=== PATIENT | male | born 1980 | race Caucasian/White ===

== ENCOUNTER 2016-10-21 07:13 | Emergency (ER) | payer MEDICAID ==
[~2016-10-21] VITALS: Ht 172.7 cm; Wt 83.1 kg
[~2016-10-21 07:13] MED LIST: CYCL-259 PO; DULO60CA7 PO; TRAM50TA2 PO
[2016-10-21] MEDS ORDERED: ONDANSETRON 2MG/ML, 2ML IVPush ONE ×2 (08:00→09:00)
[2016-10-21] MEDS ORDERED: LORazepam 2 MG/ML, 1ML IVPush ONE (08:00)
[2016-10-21] MEDS ORDERED: SODIUM CHLORIDE FLUSH 10ML SYR IVF ONE (08:00)
[2016-10-21] MEDS ORDERED: FOLIC ACID 1 MG TABLET PO ONE (08:00)
[2016-10-21] MEDS ORDERED: THIAMINE 100MG TABLET PO ONE (08:00)
[2016-10-21] MEDS ORDERED: SODIUM CHLORIDE 0.9% 1,000ML IVBOLUS ONE (08:00)
[2016-10-21] MEDS ORDERED: LORazepam 2 MG/ML, 1ML ONE (08:17)
[2016-10-21] MEDS ORDERED: ONDANSETRON 2MG/ML, 2ML ONE ×2 (08:17→09:07)
[2016-10-21 08:53] LABS: BLOOD UREA NITROGEN 14 mg/dL (7-18)
[2016-10-21 08:56] LABS: ASPARTATE AMINO TRANSFERASE 28 U/L (15-37)
[2016-10-21] MEDS ORDERED: FAMOTIDINE 20 MG/2 ML ONE (09:07)
[2016-10-21] MEDS ORDERED: THIAMINE 100MG TABLET ONE (09:27)
[2016-10-21] MEDS ORDERED: FAMOTIDINE 20 MG/2 ML IVPush ONE (09:30)
[2016-10-21 09:53] VITALS: BP 137/88
== END 2016-10-21 09:56 | disposition home or self-care (01) ==
LOC: ED 08:58
DX: F41.9 Anxiety disorder, unspecified (principal); F10.231 Alcohol dependence with withdrawal delirium; K29.20 Alcoholic gastritis without bleeding
CPT/HCPCS: 36415; 80053; 85025; 96361; 96374; 96375; 96376; J2405; J2060; J7030; S0028

== ENCOUNTER 2016-10-23 18:12 | Emergency (ER) | payer MEDICAID ==
[~2016-10-23] VITALS: Ht 172.7 cm; Wt 84.8 kg
[2016-10-23 18:14] VITALS: BP 124/82
[2016-10-23] MEDS ORDERED: LORazepam 1MG TABLET ONE (19:29)
[2016-10-23] MEDS ORDERED: LORazepam 1MG TABLET PO ONE (19:30)
== END 2016-10-23 19:41 | disposition home or self-care (01) ==
LOC: ED 18:51
DX: F41.1 Generalized anxiety disorder (principal)
CPT/HCPCS: 99284

== ENCOUNTER 2016-10-24 03:25 | Emergency (ER) | payer MEDICAID ==
[~2016-10-24] VITALS: Ht 172.7 cm; Wt 85.1 kg
[2016-10-24 03:27] VITALS: BP 136/90
[2016-10-24] MEDS ORDERED: IBUPROFEN 200 MG TABLET PO ONE (04:00)
[2016-10-24] MEDS ORDERED: IBUPROFEN 200 MG TABLET ONE (04:02)
== END 2016-10-24 04:24 | disposition left against medical advice (07) ==
LOC: ED 04:18
DX: S39.012A Strain of muscle, fascia and tendon of lower back, initial encounter (principal); X58.XXXA Exposure to other specified factors, initial encounter; Y93.89 Activity, other specified; Y92.89 Other specified places as the place of occurrence of the external cause; Y99.8 Other external cause status
CPT/HCPCS: 99283

== ENCOUNTER 2016-10-24 12:40 | Emergency (ER) | payer MEDICAID ==
[~2016-10-24] VITALS: Ht 172.7 cm; Wt 85.1 kg
[2016-10-24] MEDS ORDERED: THIAMINE 100MG TABLET ONE (13:26)
[2016-10-24] MEDS ORDERED: ONDANSETRON 2MG/ML, 2ML ONE (13:26)
[2016-10-24] MEDS ORDERED: LORazepam 2 MG/ML, 1ML ONE (13:27)
[2016-10-24] MEDS ORDERED: LORazepam 2 MG/ML, 1ML IVPush ONE (13:30)
[2016-10-24] MEDS ORDERED: ONDANSETRON 2MG/ML, 2ML IVPush ONE (13:30)
[2016-10-24] MEDS ORDERED: THIAMINE 100MG TABLET PO ONE (13:30)
[2016-10-24] MEDS ORDERED: SODIUM CHLORIDE 0.9% 1,000ML IVBOLUS ONE (13:30)
[2016-10-24] MEDS ORDERED: SODIUM CHLORIDE FLUSH 10ML SYR IVF ONE (13:30)
[2016-10-24 13:46] LABS: ASPARTATE AMINO TRANSFERASE 31 U/L (15-37); BLOOD UREA NITROGEN 13 mg/dL (7-18)
[2016-10-24 15:33] VITALS: BP 117/72
[2016-10-25] MEDS ORDERED: FOLIC ACID 1 MG TABLET PO ONE (09:00)
== END 2016-10-24 15:35 | disposition home or self-care (01) ==
LOC: ED 13:38
DX: F10.239 Alcohol dependence with withdrawal, unspecified (principal); R45.1 Restlessness and agitation
CPT/HCPCS: 36415; 80053; 85025; 85610; 93005; 96361; 96374; 96375; 99285; J2060; J2405; J7030

== ENCOUNTER 2016-11-30 23:29 | Emergency (ER) | payer MEDICAID ==
[~2016-11-30] VITALS: Ht 172.7 cm; Wt 86.6 kg
[2016-12-01] MEDS ORDERED: MAALOX/HYOSCYAMINE/LIDOCAINE 45 ML BTL PO ONE (01:00)
[2016-12-01 01:10] LABS: HEMATOCRIT 45.7 % (39.2-51.8); HEMOGLOBIN 15.4 g/dL (13.7-18.0); WHITE BLOOD COUNT 11.8 x10^3/uL (3.4-10)
[2016-12-01] MEDS ORDERED: MAALOX/HYOSCYAMINE/LIDOCAINE 45 ML BTL ONE (01:13)
[2016-12-01 01:23] LABS: ASPARTATE AMINO TRANSFERASE 23 U/L (15-37); BLOOD UREA NITROGEN 9 mg/dL (7-18)
[2016-12-01 01:38] VITALS: BP 139/82
[2016-12-01 03:22] LABS: DAU SCREEN DISCLAIMER
== END 2016-12-01 02:57 | disposition home or self-care (01) ==
LOC: ED 23:59
DX: K29.20 Alcoholic gastritis without bleeding (principal); F10.129 Alcohol abuse with intoxication, unspecified; F41.9 Anxiety disorder, unspecified; Z87.19 Personal history of other diseases of the digestive system
CPT/HCPCS: 36415; 80053; 80307; 81003; 83690; 85025; 93005; 99285

== ENCOUNTER 2016-12-16 18:13 | Emergency (ER) | payer MEDICAID ==
[~2016-12-16] VITALS: Ht 172.7 cm; Wt 78.0 kg
[2016-12-16 18:49] LABS: HEMATOCRIT 43.9 % (39.2-51.8); HEMOGLOBIN 14.6 g/dL (13.7-18.0); WHITE BLOOD COUNT 10.5 x10^3/uL (3.4-10)
[2016-12-16] MEDS ORDERED: MAGNESIUM SULFATE 1 GM, THIAMINE 100 MG, FOLIC ACID 1 MG, MVI ADULT 10 ML in SODIUM CHL... IV ONE (19:00)
[2016-12-16] MEDS ORDERED: SODIUM CHLORIDE FLUSH 10ML SYR IVF ONE (19:00)
[2016-12-16 19:01] LABS: ASPARTATE AMINO TRANSFERASE 31 U/L (15-37); BLOOD UREA NITROGEN 9 mg/dL (7-18)
[2016-12-16] MEDS ORDERED: ONDANSETRON 2MG/ML, 2ML ONE (19:32)
[2016-12-16] MEDS ORDERED: LORazepam 2 MG/ML, 1ML ONE (19:32)
[2016-12-16 19:42] LABS: DAU SCREEN DISCLAIMER
[2016-12-16 19:48] VITALS: BP 123/77
[2016-12-16] MEDS ORDERED: LORazepam 2 MG/ML, 1ML IVPush ONE ×3 (20:00→21:30)
[2016-12-16] MEDS ORDERED: ONDANSETRON 2MG/ML, 2ML IVPush ONE (20:00)
== END 2016-12-16 21:50 | disposition home or self-care (01) ==
LOC: ED 19:35
DX: R56.9 Unspecified convulsions (principal); F10.239 Alcohol dependence with withdrawal, unspecified
CPT/HCPCS: 36415; 70450; 80053; 80307; 82140; 85025; 85610; 93005; 96361; 96365; 96375; 96376; 99285; J2060; J2405; J3411; J3475; J7030; G0479

== ENCOUNTER 2017-01-10 18:35 | Emergency (ER) | payer MEDICAID ==
[~2017-01-10] VITALS: Ht 177.8 cm; Wt 82.0 kg
[2017-01-10] MEDS ORDERED: LORazepam 2 MG/ML, 1ML ONE (18:43)
[2017-01-10] MEDS ORDERED: ONDANSETRON 2MG/ML, 2ML ONE ×2 (18:43)
[2017-01-10] MEDS ORDERED: LORazepam 2 MG/ML, 1ML IVPush ONE (19:00)
[2017-01-10] MEDS ORDERED: ONDANSETRON 2MG/ML, 2ML IVPush ONE (19:00)
[2017-01-10] MEDS ORDERED: SODIUM CHLORIDE 0.9% 1,000ML IVBOLUS ONE (19:00)
[2017-01-10] MEDS ORDERED: SODIUM CHLORIDE FLUSH 10ML SYR IVF ONE (19:00)
[2017-01-10 19:11] VITALS: BP 110/72
[2017-01-10] MEDS ORDERED: THIAMINE 100MG TABLET PO ONE (19:30)
== END 2017-01-10 20:13 | disposition home or self-care (01) ==
LOC: ED 19:30
DX: F10.239 Alcohol dependence with withdrawal, unspecified (principal); R45.1 Restlessness and agitation; F41.9 Anxiety disorder, unspecified
CPT/HCPCS: 96361; 96374; 96375; 99284; J2060; J2405; J7030

== ENCOUNTER 2017-01-11 13:47 | Emergency (ER) | payer MEDICAID ==
[~2017-01-11] VITALS: Ht 172.7 cm; Wt 83.9 kg
[2017-01-11] MEDS ORDERED: LORazepam 2 MG/ML, 1ML ONE (14:16)
[2017-01-11] MEDS ORDERED: LORazepam 2 MG/ML, 1ML IM ONE (14:30)
[2017-01-11 14:55] VITALS: BP 130/66
== END 2017-01-11 15:02 | disposition home or self-care (01) ==
LOC: ED 13:58
DX: F10.239 Alcohol dependence with withdrawal, unspecified (principal); M19.90 Unspecified osteoarthritis, unspecified site
CPT/HCPCS: 96372; 99283; J2060

== ENCOUNTER 2017-03-07 14:26 | Emergency (ER) | payer MEDICAID ==
[~2017-03-07] VITALS: Ht 172.7 cm; Wt 81.7 kg
[2017-03-07 14:52] VITALS: BP 135/90
== END 2017-03-07 17:09 | disposition home or self-care (01) ==
LOC: ED 16:15
DX: S39.012A Strain of muscle, fascia and tendon of lower back, initial encounter (principal); W18.2XXA Fall in (into) shower or empty bathtub, initial encounter; Y93.E1 Activity, personal bathing and showering; Y92.89 Other specified places as the place of occurrence of the external cause; Y99.8 Other external cause status
CPT/HCPCS: 72110; 99284

== ENCOUNTER 2017-03-31 15:12 | Emergency (ER) | payer MEDICAID ==
[~2017-03-31] VITALS: Ht 172.7 cm; Wt 85.0 kg
[2017-03-31 15:15] VITALS: BP 130/79
[2017-03-31] MEDS ORDERED: HYDROcodone/APAP 5/325 TABLET ONE (17:25)
[2017-03-31] MEDS ORDERED: HYDROcodone/APAP 5/325 TABLET PO ONE (17:30)
== END 2017-03-31 17:40 | disposition home or self-care (01) ==
LOC: ED 17:02
DX: K02.9 Dental caries, unspecified (principal)
CPT/HCPCS: 99283

== ENCOUNTER 2017-06-18 17:24 | Emergency (ER) | payer MEDICAID ==
[~2017-06-18] VITALS: Ht 170.2 cm; Wt 82.3 kg
[2017-06-18 17:27] VITALS: BP 100/68
== END 2017-06-18 17:57 | disposition left against medical advice (07) ==
LOC: ED 17:51
DX: R44.1 Visual hallucinations (principal); Z53.21 Procedure and treatment not carried out due to patient leaving prior to being seen by health care provider

== ENCOUNTER 2017-10-31 22:12 | Emergency (ER) | payer MEDICAID ==
[~2017-10-31] VITALS: Ht 172.7 cm; Wt 71.4 kg
[2017-10-31] MEDS ORDERED: ONDANSETRON ODT 4 MG ONE (22:47)
[2017-10-31 23:00] LABS: BASOPHILS # (AUTO) 0.04 x10^3/uL (0-0.1); BASOPHILS % (AUTO) 1 % (0-1); EOSINOPHILS # (AUTO) 0.07 x10^3/uL (0-0.4); EOSINOPHILS % (AUTO) 1 % (1-7); LYMPHOCYTES # (AUTO) 2.12 x10^3/uL (1-3.4); LYMPHOCYTES % (AUTO) 31 % (22-44); MD NO; MEAN CORPUSCULAR HEMOGLOBIN 32.2 pg (27.5-34.5); MEAN CORPUSCULAR HGB CONC 34.6 g/dL (33.2-36.2); MEAN PLATELET VOLUME 6.3 fL (7.4-10.4); MONOCYTES # (AUTO) 0.35 x10^3/uL (0.2-0.8); MONOCYTES % (AUTO) 5 % (2-9); NEUTROPHILS # (AUTO) 4.35 x10^3/uL (1.8-6.8); NEUTROPHILS % (AUTO) 63 % (42-75); PLATELET COUNT 250 x10^3/uL (130-400); RED BLOOD COUNT 4.73 x10^6/uL (4.38-5.82); RED CELL DISTRIBUTION WIDTH 13.8 % (9.4-14.8)
[2017-10-31] MEDS ORDERED: ONDANSETRON ODT 4 MG PO ONE (23:00)
[2017-10-31 23:12] LABS: ANION GAP 9 mmol/L (5-15); CALCIUM 8.4 mg/dL (8.5-10.1); CHLORIDE 105 mmol/L (98-107); CREATININE 1.05 mg/dL (0.7-1.3)
[2017-10-31 23:13] LABS: ALANINE AMINOTRANSFERASE 43 U/L (12-78)
[2017-10-31 23:17] LABS: ALKALINE PHOSPHATASE 65 U/L (45-117); BILIRUBIN,TOTAL 0.9 mg/dL (0.2-1.0); TOTAL PROTEIN 7.6 g/dL (6.4-8.2)
[2017-11-01 00:13] VITALS: BP 119/83
== END 2017-11-01 00:17 | disposition home or self-care (01) ==
LOC: ED 23:59
DX: F10.120 Alcohol abuse with intoxication, uncomplicated (principal); F19.10 Other psychoactive substance abuse, uncomplicated; Z72.9 Problem related to lifestyle, unspecified
CPT/HCPCS: 36415; 80053; 80307; 85025; 99284; Q0162

== ENCOUNTER 2018-02-22 12:26 | Emergency (ER) | payer MEDICAID ==
[~2018-02-22] VITALS: Ht 167.6 cm; Wt 76.4 kg
[2018-02-22 15:39] VITALS: BP 100/53
== END 2018-02-22 16:40 | disposition home or self-care (01) ==
LOC: ED 16:34
DX: F10.229 Alcohol dependence with intoxication, unspecified (principal); F11.20 Opioid dependence, uncomplicated; F17.200 Nicotine dependence, unspecified, uncomplicated; Z72.9 Problem related to lifestyle, unspecified; Y90.9 Presence of alcohol in blood, level not specified
CPT/HCPCS: 99283

== ENCOUNTER 2018-10-03 21:55 | Emergency (ER) | payer MEDICAID ==
[~2018-10-03] VITALS: Ht 175.3 cm; Wt 70.0 kg
[2018-10-03] MEDS ORDERED: GABA300C10 PO (22:01)
[2018-10-03] MEDS ORDERED: METH500T7 PO (22:01)
[2018-10-03] MEDS ORDERED: BUSP15TA PO (22:02)
[2018-10-03] MEDS ORDERED: METHOCARBAMOL 750 MG TABLET ONE (22:18)
[2018-10-03] MEDS ORDERED: ACETAMINOPHEN 325 MG TABLET ONE (22:18)
--- NOTE | 2018-10-03 22:22 | NUR ---
PT FILIBERTO SUAREZ FROM [employer]. PT REPORTS HE WAS HELPING HIS MOTHER MOVE AND HURT HIS BACK FOUR DAYS AGO. PT C/O LOW BACK PAIN. PT HAS A HISTORY OF BACK PAIN. VS STABLE. PT SEEN BY DR SIMON. CALL LIGHT IN PLACE. NO ACUTE DISTRESS NOTED. WILL CONTINUE TO MONITOR.
[2018-10-03] MEDS ORDERED: ACETAMINOPHEN 325 MG TABLET PO ONE (22:30)
[2018-10-03] MEDS ORDERED: METHOCARBAMOL 750 MG TABLET PO ONE (22:30)
--- NOTE | 2018-10-03 22:36 | NUR ---
PT RESTING IN ROOM. NO ACUTE DISTRESS NOTED. CALL LIGHT IN PLACE. WILL CONTINUE TO MONITOR.
--- NOTE | 2018-10-03 23:05 | NUR ---
PT RESTING IN ROOM. NO ACUTE DISTRESS NOTED. CALL LIGHT IN PLACE. WILL CONTINUE TO MONITOR.
--- NOTE | 2018-10-03 23:15 | NUR ---
DR SIMON HAS UPDATED PATIENT.
[2018-10-03 23:49] VITALS: BP 98/52
== END 2018-10-03 23:52 | disposition home or self-care (01) ==
LOC: ED 22:11
DX: S39.012A Strain of muscle, fascia and tendon of lower back, initial encounter (principal); S29.012A Strain of muscle and tendon of back wall of thorax, initial encounter; F17.200 Nicotine dependence, unspecified, uncomplicated; X50.9XXA Other and unspecified overexertion or strenuous movements or postures, initial encounter; Y93.89 Activity, other specified; Y92.009 Unspecified place in unspecified non-institutional (private) residence as the place of occurrence of the external cause; Y99.8 Other external cause status
CPT/HCPCS: 99284; J7512

== ENCOUNTER 2018-10-30 23:55 | Emergency (ER) | payer MEDICAID ==
[~2018-10-30] VITALS: Ht 172.7 cm; Wt 66.0 kg
[2018-10-30 23:59] VITALS: BP 115/55
== END 2018-10-31 01:52 | disposition left against medical advice (07) ==
LOC: ED 10-31 01:40
DX: F41.9 Anxiety disorder, unspecified (principal); Z53.21 Procedure and treatment not carried out due to patient leaving prior to being seen by health care provider
CPT/HCPCS: 99281

== ENCOUNTER 2018-10-31 01:58 | Emergency (ER) | payer MEDICAID ==
[~2018-10-31] VITALS: Ht 172.7 cm; Wt 65.9 kg
[2018-10-31 01:59] VITALS: BP 112/72
== END 2018-10-31 03:19 | disposition home or self-care (01) ==
LOC: ED 03:16
DX: F41.1 Generalized anxiety disorder (principal); R06.4 Hyperventilation; F17.200 Nicotine dependence, unspecified, uncomplicated; M19.90 Unspecified osteoarthritis, unspecified site
CPT/HCPCS: 99284

== ENCOUNTER 2019-02-26 05:41 | Emergency (ER) | payer MEDICAID ==
[~2019-02-26] VITALS: Ht 172.7 cm; Wt 66.8 kg
[~2019-02-26 05:41] MED LIST changes: +BUSP15TA PO; +GABA300C10 PO; +METH500T7 PO
--- NOTE | 2019-02-26 05:49 | NUR ---
LINE ASSEMBLY UTILITY WORKER: OFFERED PT WHEELCHAIR, PT REFUSED
--- NOTE | 2019-02-26 06:43 | NUR ---
Patient ambulated back to room, got disoriented and wandered in a nonspecific direction correction to room. Patient appears poorly kept, pungent odor. Patient asked to get dressed.
--- NOTE | 2019-02-26 06:58 | NUR ---
REPORT RECEIVED FROM KACY FLORES.
[2019-02-26] MEDS ORDERED: DIPH,PERTUSS(ACELL),TET VAC/PF 0.5 ML IM-VACC ONE (07:00)
[2019-02-26 07:15] LABS: BASOPHILS # (AUTO) 0.04 x10^3/uL (0-0.1); BASOPHILS % (AUTO) 0 % (0-1); EOSINOPHILS # (AUTO) 0.21 x10^3/uL (0-0.4); EOSINOPHILS % (AUTO) 2 % (1-7); LYMPHOCYTES # (AUTO) 1.58 x10^3/uL (1-3.4); LYMPHOCYTES % (AUTO) 15 % (22-44); MD NO; MEAN CORPUSCULAR HEMOGLOBIN 33.3 pg (27.5-34.5); MEAN CORPUSCULAR HGB CONC 33.4 g/dL (33.2-36.2); MEAN CORPUSCULAR VOLUME 99.7 fL (81-97); MONOCYTES % (AUTO) 9 % (2-9); NEUTROPHILS # (AUTO) 7.65 x10^3/uL (1.8-6.8); NEUTROPHILS % (AUTO) 74 % (42-75); PLATELET COUNT 270 x10^3/uL (130-400); RED BLOOD COUNT 4.55 x10^6/uL (4.38-5.82); RED CELL DISTRIBUTION WIDTH 12.8 % (9.4-14.8)
[2019-02-26 07:20] LABS: ALBUMIN 3.3 g/dL (3.4-5.0); CALCIUM 7.8 mg/dL (8.5-10.1)
[2019-02-26 07:40] LABS: ANION GAP 7 mmol/L (5-15); CHLORIDE 109 mmol/L (98-107)
--- NOTE | 2019-02-26 07:57 | NUR ---
REPORT GIVEN TO KENNA FLORES. ALL QUESTIONS ANSWERED.
--- NOTE | 2019-02-26 08:03 | NUR ---
PT IN XRAY AT THIS TIME.
--- NOTE | 2019-02-26 08:04 | NUR ---
PT BACK TO ROOM FROM XRAY AT THIS TIME.
--- NOTE | 2019-02-26 08:06 | NUR ---
URINAL AT BEDSIDE. PT AWARES OF UA.
--- NOTE | 2019-02-26 08:15 | NUR ---
PT STATES "I CAN'T PEE. I TRIED, BUT I CAN'T" URINAL STILL AT BEDSIDE.
[2019-02-26] MEDS ORDERED: KETOROLAC 30 MG/1 ML IM ONE (08:30)
[2019-02-26] MEDS ORDERED: KETOROLAC 30 MG/1 ML ONE (08:33)
--- NOTE | 2019-02-26 08:38 | NUR ---
WATER PROVIDED. PT MEDICATED PER EMAR. PT TOLERATED WELL.
--- NOTE | 2019-02-26 09:08 | NUR ---
bllader scan showed pt has about 300ml urine. edmd notified. pt awares of ua again.
--- NOTE | 2019-02-26 09:24 | NUR ---
pt provided urine sample at this time. ua sent.
[2019-02-26 09:51] VITALS: BP 98/59
[2019-02-26 09:55] LABS: MICROSCOPIC INDICATED
[2019-02-26 09:57] LABS: CULTURE INDICATED? NO
--- NOTE | 2019-02-26 10:38 | NUR ---
TASK RN NOTE: Pt visibly agitated, pacing room. pt refuses repeat VS and wound care. EDPA notified. Pt given dc instructions and script, educated regarding rx for flexiril, ibuprofen and muporicin. pt given IS with instructions, verbalizes understanding. pt amb to dc desk with steady gait, nadn at dc.
[2019-02-26] MEDS ORDERED: NEOSPORIN OINT. PKT 1 PACKET ONE (10:39)
== END 2019-02-26 10:38 | disposition home or self-care (01) ==
LOC: ED 08:45
DX: S16.1XXA Strain of muscle, fascia and tendon at neck level, initial encounter (principal); S29.012A Strain of muscle and tendon of back wall of thorax, initial encounter; S00.12XA Contusion of left eyelid and periocular area, initial encounter; S20.212A Contusion of left front wall of thorax, initial encounter; S20.211A Contusion of right front wall of thorax, initial encounter; S23.3XXA Sprain of ligaments of thoracic spine, initial encounter; Y04.0XXA Assault by unarmed brawl or fight, initial encounter; Y93.89 Activity, other specified; Y92.488 Other paved roadways as the place of occurrence of the external cause; Y99.8 Other external cause status
CPT/HCPCS: 36415; 70450; 71046; 72072; 72125; 80048; 81001; 82040; 85025; 96372; 99284; J1885

== ENCOUNTER 2020-06-24 09:29 | Emergency (ER) | payer MEDICAID ==
[~2020-06-24] VITALS: Ht 172.7 cm; Wt 78.3 kg
[~2020-06-24 09:29] MED LIST changes: -CYCL-259 PO; +CYCL10TA2 PO; +METH-639 PO; -METH500T7 PO
--- NOTE | 2020-06-24 09:52 | NUR ---
BIB EMS, PT FOUND LYING ON SIDWALK BY LUNA REDDING. PT ALTERED, SORTO BUT IS UNABLE TO SAFELY AMBULATE, SPEECH IS NOT UNDERSTANDABLE. ED PADICKSON AT BEDSIDE. PT ASSESSMENT REV. AND POC DISCUSSED. ALL CLOTHES REMOVED AND PT IN GOWN, ALL MONITORS PLACED, VSS. WARM BLANKETS AND PILLOW FOR COMFORT.
--- NOTE | 2020-06-24 09:58 | NUR ---
PT IMPULSIVE AND ATTEMPTING TO GET OOB. PT IS NOT SAFE TO AMBULATE. REDIRECTS EASILY, EMT, JEFERSON AT BEDSIDE TO REDIRECT PT NEEDED.
[2020-06-24] MEDS ORDERED: PLEASE ENTER ALLERGIES MC SCH (10:00)
[2020-06-24] MEDS ORDERED: PLEASE ENTER HEIGHT AND WEIGHT MC SCH (10:00)
[2020-06-24] MEDS ORDERED: SODIUM CHLORIDE 0.9% 1,000ML IVBOLUS ONE (10:00)
[2020-06-24] MEDS ORDERED: THIAMINE 100 MG/ML, 2ML IM ONE (10:00)
[2020-06-24 10:02] LABS: BASOPHILS % (AUTO) 1 % (0-1); EOSINOPHILS % (AUTO) 1 % (1-7); LYMPHOCYTES % (AUTO) 19 % (22-44); MD NO; MEAN CORPUSCULAR HEMOGLOBIN 33.5 pg (27.5-34.5); MEAN CORPUSCULAR HGB CONC 33.8 g/dL (33.2-36.2); MEAN PLATELET VOLUME 5.9 fL (7.4-10.4); MONOCYTES % (AUTO) 8 % (2-9); NEUTROPHILS % (AUTO) 71 % (42-75); PLATELET COUNT 337 x10^3/uL (130-400); RED CELL DISTRIBUTION WIDTH 13.1 % (9.4-14.8)
--- NOTE | 2020-06-24 10:11 | NUR ---
PT TO CT WITH TECH AND EMT TRANSPORT VIA [facility]
[2020-06-24 10:12] LABS: ALANINE AMINOTRANSFERASE 24 U/L (12-78); ALBUMIN 3.7 g/dL (3.4-5.0); ANION GAP 7 mmol/L (5-15); CALCIUM 8.5 mg/dL (8.5-10.1); CHLORIDE 110 mmol/L (98-107); CREATININE 1.08 mg/dL (0.7-1.3)
[2020-06-24 10:15] LABS: ALKALINE PHOSPHATASE 59 U/L (45-117); BILIRUBIN,TOTAL 0.2 mg/dL (0.2-1.0); TOTAL PROTEIN 6.7 g/dL (6.4-8.2)
--- NOTE | 2020-06-24 10:37 | NUR ---
PT RTD FROM CT. TOLLERATED PROCEDURE WELL. REMAINS VERY DROWSY, STATES NAME IS MICHAEL BUT I AM UNABLE TO UNDERSTAND ANYTHING ELSE THAT HE VERBALIES. EMT REMAINS AT BEDISDE FOR PT SAFETY.
[2020-06-24] MEDS ORDERED: THIAMINE 100MG TABLET ONE (11:15)
[2020-06-24] MEDS ORDERED: THIAMINE 100 MG/ML, 2ML ONE (11:20)
--- NOTE | 2020-06-24 11:30 | NUR ---
PT MED NOTED AND IVF INFUSING W/O DIFFICULTY. PT ATTEMPTING TO GET OOB STATING HE NEEDS TO "GO PEE" RN AND EMT STANDBY ASSIST PT OOB, ATTEMPT TO USE URINAL AND THEN STATED "I DON'T NEED TO GO" PT RTD TO [facility] W/O INCIDENT. EMT REMAINS AT BEDSIDE TO REDIRECT PT.
--- NOTE | 2020-06-24 12:44 | NUR ---
PT CONTINUES TO BE RESTLESS AND ATTEMPTS TO GET OOB. PT IS TOO UNSTEADY ON HIS FEET AT THIS TIME. TOLLERATING SIPS OF WATER. EMT REMAINS AT BEDSIDE FOR PT SAFETY. PT NEEDS FREQUENT REDIRECTION TO PREVENT SELF HARM FROM ATTEMPTING TO GET OUT OF GURNEY. PT ORIENTED TO PLACE AND SITUATION
--- NOTE | 2020-06-24 12:55 | NUR ---
MEAL TRAY PROVIDED AND SET UP FOR PT. EMT AT BEDSIDE.
--- NOTE | 2020-06-24 13:45 | NUR ---
PT ATE 25% OF PROVIDED MEAL. +VOID USING URINAL, UA AND DOA SENT TO LAB.
--- NOTE | 2020-06-24 13:59 | NUR ---
PT MORE ALERT, IVF INFUSION COMPLETED. REGISTRATION TO BEDSIDE, TO REGISTER PT UNDER CORRECT NAME.
[2020-06-24 14:00] VITALS: BP 149/93
[2020-06-24 14:08] LABS: AMPHETAMINE SCREEN, URINE Positive (Negative); BARBITURATE SCREEN, URINE Negative (Negative); BENZODIAZEPINE SCREEN, URINE Negative (Negative); CANNABINOID SCREEN, URINE Negative (Negative); COCAINE SCREEN, URINE Negative (Negative); METHADONE SCREEN, URINE Negative (Negative); OPIATE SCREEN, URINE Negative (Negative)
--- NOTE | 2020-06-24 14:35 | NUR ---
PT OOB AND AMBULATES UPRIGHT STEADY GAIT. A&0 TO PERSON, PLACE. PT DRESSED INDEPENDENTLY. PT LOOKING FOR HIS KEYS AND WALLET. EXPLAINED TO PT THAT HE DID NOT HAVE A WALLET OR KEYS WHEN HE WAS BROUGHT IN BY EMS. I REMINDED PT THAT HE WAS ORIGINALLY REGISTERED UNDER "UNIDENTIFIED" BECAUSE HE DID NOT HAVE ANY ID WITH IM AND HE WAS NOT ALERT ENOUGH TO GIVE US ANY INFORMATION
--- NOTE | 2020-06-24 14:50 | NUR ---
Patient/Caregiver given discharge instructions and they have confirmed that they understand the instructions. Patient ambulatory with steady gait.
== END 2020-06-24 14:51 | disposition home or self-care (01) ==
LOC: MERGE 09:29 → EDBD 09:29 → ED 13:57
DX: F10.229 Alcohol dependence with intoxication, unspecified (principal); G93.40 Encephalopathy, unspecified; R00.0 Tachycardia, unspecified; Y90.0 Blood alcohol level of less than 20 mg/100 ml
CPT/HCPCS: 36415; 70450; 80053; 80307; 80320; 82140; 85025; 93005; 96360; 96361; 96372; 99285; J3411; J7030; G0480

== ENCOUNTER 2020-07-26 19:42 | Emergency (ER) | payer MEDICAID ==
[~2020-07-26] VITALS: Ht 172.7 cm; Wt 72.6 kg
[2020-07-26 19:44] VITALS: BP 166/100
[2020-07-26 20:41] LABS: BASOPHILS % (AUTO) 1 % (0-1); EOSINOPHILS % (AUTO) 0 % (1-7); LYMPHOCYTES % (AUTO) 18 % (22-44); MEAN CORPUSCULAR HEMOGLOBIN 33.1 pg (27.5-34.5); MEAN CORPUSCULAR HGB CONC 33.6 g/dL (33.2-36.2); MEAN PLATELET VOLUME 6.5 fL (7.4-10.4); MONOCYTES % (AUTO) 11 % (2-9); NEUTROPHILS % (AUTO) 70 % (42-75); PLATELET COUNT 366 x10^3/uL (130-400); RED BLOOD COUNT 5.05 x10^6/uL (4.38-5.82); RED CELL DISTRIBUTION WIDTH 13.3 % (9.4-14.8)
[2020-07-26 20:43] LABS: MD NO
[2020-07-26 20:50] LABS: ALBUMIN 4.6 g/dL (3.4-5.0); ANION GAP 7 mmol/L (5-15); CALCIUM 9.5 mg/dL (8.5-10.1); CHLORIDE 105 mmol/L (98-107); CREATININE 1.26 mg/dL (0.7-1.3)
[2020-07-26 20:59] LABS: TROPONIN I < 0.015 ng/mL (0.000-0.045)
--- NOTE | 2020-07-26 21:09 | NUR ---
hard metals hand engraver: pt from lobby to room 24
--- NOTE | 2020-07-26 21:21 | NUR ---
PT STATES HE SWALLOWED A WHOLE BAG OF METH THIS MORNING. PT REPORTS FAST HEARTBEAT, PARANOID, AND SHAKINESS, AND HEARING HELICOPTERS. NOTED TO BE ANXOIOUS WITH FLUSHED FACE. ATTACHED TO CARDIAC, SP02, AND BP MONITOR. PT IN NAD. BREATHING EVEN AND UNLABORED. WILL CONTINUE TO MONITOR
[2020-07-26] MEDS ORDERED: LORazepam 1MG TABLET ONE (21:28)
[2020-07-26] MEDS ORDERED: LORazepam 1MG TABLET PO ONE (21:30)
--- NOTE | 2020-07-26 21:30 | NUR ---
PT DENIES CP AND SOB.
[2020-07-26] MEDS ORDERED: ONDANSETRON ODT 4 MG ONE (21:55)
[2020-07-26] MEDS ORDERED: ONDANSETRON ODT 4 MG PO ONE (22:00)
== END 2020-07-26 22:08 ==
LOC: ED 21:36
DX: R00.2 Palpitations (principal); F15.122 Other stimulant abuse with intoxication with perceptual disturbance; F17.210 Nicotine dependence, cigarettes, uncomplicated
CPT/HCPCS: 36415; 71045; 80048; 82040; 84443; 84484; 85025; 93005; 99285; 99406; Q0162

== ENCOUNTER 2020-08-02 00:38 | Emergency (ER) | payer MEDICAID ==
[~2020-08-02] VITALS: Ht 170.2 cm; Wt 75.0 kg
[2020-08-02] MEDS ORDERED: KETAMINE 100 MG/ML, 5ML IM ONE (01:00)
[2020-08-02] MEDS ORDERED: SODIUM CHLORIDE FLUSH 10ML SYR IVF ONE (01:00)
[2020-08-02] MEDS ORDERED: DIPH,PERTUSS(ACELL),TET VAC/PF 0.5 ML IM-VACC ONE ×2 (01:00→01:26)
--- NOTE | 2020-08-02 01:10 | NUR ---
PT MEDICATED WITH IM MEDICINE PER EMAR AND MD ORDER. PT GIVEN KETAMINE IM INJECTION TO RIGHT GLUTEUS CELESTE. TOLERATED WELL. 0120, PT SEDATED AND RELAXING, REMAINS ON CR MONITOR, AND O2 SAT PROBE. PT TAKEN TO CT SCAN ESCORTED WITH PD, AND RELEASED FROM FULL BODY RESTRAINTS FOR CT SCAN.
--- NOTE | 2020-08-02 01:10 | NUR ---
PT BIB [facility] ON POLICE HOLD AND IN FULL BODY RESTRAINTS. PT AGITATED AND BELLIGERANT. PLACED IN HOSPITAL BED, AND VITALIZED, MD TO BEDSIDE, AND PT EVALUATED. HAS AN APPROX 4CMM LAC TO BACK OF HEAD. PT NON COOPERATIVE AND MD ORDERS RECEIVED.
--- NOTE | 2020-08-02 01:20 | NUR ---
PT TOLERATED CT SCAN AND BROUGHT BACK TO ROOM. WAITING ON CT SCAN TO BE READ SO PT CAN BE DISCHARGED. PT HAD LACERATION TO BACK OF HEAD STAPLED WITH 6 LISHA. EDGES APPROXIMATED AND NO MORE BLEEDING. LAC CLEANED WITH NS, AND NO BLEEDING. PT REMAINS BELLIGERANT AND RESTRAINED ON HAND CUFFS AND LEG WRAPS. PD REMAINS AT BEDSIDE WITH RN TO MONITOR PT. AIRWAY INTACT, GOOD AERATION AND OXYGENATION. O2 SAT 94%.
[2020-08-02 02:09] VITALS: BP 145/88
--- NOTE | 2020-08-02 02:09 | NUR ---
PT IS NOW AWAKE AND CONTINUOUSLY TRIES TO BREAK OUT OF HIS HANDCUFFS. PUBLIC ADDRESS SYSTEM OPERATOR AT BEDSIDE AND RN AT BEDSIDE TO MONITOR PT. PT FIDGETY AND UNABLE TO HOLD STILL, SPEAKS AT TIMES, AND HAS TAKEN METHAMPHETAMINES EARLIER. NO LONGER SEDATED, AIRWAY INTACT AND GOOD AERATION AND OXYGENATION.
== END 2020-08-02 02:46 | disposition home or self-care (01) ==
LOC: ED 00:55
DX: S06.0X0A Concussion without loss of consciousness, initial encounter (principal); S00.91XA Abrasion of unspecified part of head, initial encounter; S50.312A Abrasion of left elbow, initial encounter; S50.311A Abrasion of right elbow, initial encounter; S80.212A Abrasion, left knee, initial encounter; M54.2 Cervicalgia; F13.159 Sedative, hypnotic or anxiolytic abuse with sedative, hypnotic or anxiolytic-induced psychotic disorder, unspecified; F17.200 Nicotine dependence, unspecified, uncomplicated; M19.90 Unspecified osteoarthritis, unspecified site; X58.XXXA Exposure to other specified factors, initial encounter; Y93.89 Activity, other specified; Y92.410 Unspecified street and highway as the place of occurrence of the external cause; Y99.8 Other external cause status
CPT/HCPCS: 12032; 70450; 70486; 72125; 90471; 90715; 96372; 99152; 99285